=== PATIENT | female | born 1935 | race Asian ===

== ENCOUNTER → 2016-09-22 | Outpatient (CLI) | payer MEDICARE ==
[~2016-09-22] MED LIST: AMLO-511 PO; COMBIH IH; HYDR-3977 PO; HYDR25TA84 PO; LORA10TA7 PO; METO25 PO; OMEP20CA10 PO
== END | disposition home or self-care (01) ==
LOC: RADPV 10:55
PROVIDERS: ATTEND Internal Medicine
DX: I70.0 Atherosclerosis of aorta (principal); M46.00 Spinal enthesopathy, site unspecified
CPT/HCPCS: 71020

== ENCOUNTER → 2017-06-22 | Outpatient (CLI) | payer MEDICARE, OTHER | END | disposition home or self-care (01) | LOC: RADPV 08:21 | PROVIDERS: ATTEND Internal Medicine | DX: I70.203 Unspecified atherosclerosis of native arteries of extremities, bilateral legs (principal); G47.62 Sleep related leg cramps; R60.0 Localized edema | CPT/HCPCS: 93306; 93925; 93970 ==

== ENCOUNTER → 2018-10-26 | Outpatient (CLI) | payer MEDICARE, OTHER ==
[~2018-10-26] MED LIST changes: -AMLO-511 PO; +AMLO5TAB9 PO; +OMEP-50 PO; -OMEP20CA10 PO
== END | disposition home or self-care (01) ==
LOC: RADPV 10:04
PROVIDERS: ATTEND Internal Medicine
DX: I70.0 Atherosclerosis of aorta (principal); R05 Cough